=== PATIENT | female | born 1950 | race Caucasian/White ===

== ENCOUNTER → 2018-10-01 | Outpatient (CLI) | payer MEDICARE, OTHER ==
--- NOTE | 2018-10-02 10:10 | MAM ---
EXAM DESCRIPTION: 3D Screening BILATERAL : Digital Mammography. CLINICAL HISTORY: 68 years Female ANNUAL SCREENING . No complaints. No personal history of breast cancer. Remote family history of breast cancer. Childbirth. Postmenopausal 20+ years. Currently HRT. Lifetime risk of developing breast cancer (Tyrer-Cuzick model)(%): 4.6. COMPARISON: Bilateral screening digital breast tomosynthesis 09/25/2017. . TECHNIQUE: Bilateral CC and MLO projection full-field images, digital tomosynthesis mammographic technique. Bilateral digital 2-D full-field MLO images. CAD not available for tomosynthesis or 2-D images. FINDINGS: The breast parenchymal density pattern is: Scattered areas of fibroglandular density. Bilateral solitary microcalcifications. Right axillary lymph node.. Focal asymmetry again noted in the upper outer quadrant of the middle third of the right breast but change in pattern with more nodularity compared to the prior study. This is centered at approximately 6.6 cm from the nipple at the 9:30 position. No microcalcifications. No new focal, stellate mass or density, focal asymmetry , and no suspicious microcalcifications left breast. IMPRESSION: BI-RADS CATEGORY: 0 - INCOMPLETE- Need additional imaging evaluation. FOLLOW-UP: Recall for additional imaging: Full-field LM tomosynthesis right breast. Spot compression CC and LM projections of the region of interest right breast with 2-D and charlene synthesis. Targeted right breast ultrasound following diagnostic mammographic phase. Written communication concerning the IMPRESSION and Follow-up, will be mailed to the patient and referring health care provider. Electronically signed by: Kings Taveras MD 10/02/2018 10:08 AM CDT
== END ==
LOC: MAMMO 08:55
PROVIDERS: ATTEND Obstetrics & Gynecology
DX: Z12.31 Encounter for screening mammogram for malignant neoplasm of breast (principal)

== ENCOUNTER → 2018-10-14 | Outpatient (CLI) | payer OTHER ==
--- NOTE | 2018-10-15 10:37 | US ---
EXAM DESCRIPTION: Breast,Right (accession [id number]), ultrasound. Diagnostic Mammo,Right (accession [id number]): Digital mammography. CLINICAL HISTORY: 68 yearsFemaleABNORMAL SCREENING Focal asymmetry or nodule in the upper outer quadrant middle third right breast. COMPARISON: Bilateral screening digital breast tomosynthesis 10/02/2018. TECHNIQUE: Right breast LM projection full-field images, digital mammographic tomosynthesis technique. Right breast 2-D digital full-field images. LM projection. Digital spot compression 2-D technique region of interest, LM and CC projections. CAD not available . Transcutaneous scanning of the right breast utilizing floyd-scale and Doppler modes. Scanning performed by the engine repair supervisor and Dr. Taveras. FINDINGS: The breast parenchymal density pattern is: Scattered areas of fibroglandular density. No skin thickening or nipple retraction nodular densities surrounded by fibroglandular tissues. No microcalcifications. Ultrasound: Scanning of the lateral right breast middle third. Heterogeneous fibroglandular and fatty echotextures. At the 9:00 position 6 cm from the nipple is a anechoic structure with circumscribed margins measuring 4.2 x 6.5 mm and consistent with a cyst. Wider than tall orientation, posterior acoustic enhancement, and nonvascular. In the adjacent tissues is a anechoic structure measuring 5.1 mm with wider than tall orientation, posterior acoustic enhancement, circumscribed margins, and no vascularity. Consistent with a cyst. A third cyst is identified adjacent soft tissues measuring 4.1 x 3.1 mm. Hypoechoic object with circumscribed margins measuring 4.2 x 3.5 mm and echogenic hilum. Wider than tall orientation and posterior acoustic enhancement. Nonvascular. Most likely a lymph node. IMPRESSION: Benign exam. BIRAD CATEGORY: 2 BENIGN FINDINGS. RECOMMENDATIONS: FOLLOW UP: Routine digital bilateral mammographic screening, one year interval from September 2018. Written communication explaining the IMPRESSION and follow-up, will be mailed to the patient and referring health care provider. The FINDINGS and the FOLLOW-UP plan were reviewed in person with the patient after the examination. According to the [employer], yearly mammograms are recommended starting at age 40 and continuing as long as a woman is in good health. Any breast change noted on a breast self-exam should be reported promptly to the patient's healthcare provider. Breast MRI is recommended for women with an approximately 20-25% or greater lifetime risk of breast cancer, including women with a strong family history of breast or ovarian cancer and women who have been treated for Hodgkin's disease. A negative mammographic report should not delay tissue diagnosis in patients with significant clinical history or physical findings. Extremely dense breast tissue limits the sensitivity of digital mammography. Electronically signed by: Kings Taveras MD 10/15/2018 10:35 AM CDT
== END ==
LOC: MAMMO 09:05
PROVIDERS: ATTEND Obstetrics & Gynecology
DX: R92.8 Other abnormal and inconclusive findings on diagnostic imaging of breast (principal)

== ENCOUNTER → 2020-01-07 | Outpatient (CLI) | payer OTHER ==
--- NOTE | 2020-01-07 16:28 | MAM ---
EXAM DESCRIPTION: 3D Screening BILATERAL : Digital Mammography. CLINICAL HISTORY: 69 years Female YEARLY SCREENING . No complaints. Remote family history of breast cancer. Menarche age 12. Childbirth age 17. Menopause age 21. Currently on HRT. Lifetime risk of developing breast cancer (Tyrer-Cuzick model)(%): 4.4. COMPARISON: Bilateral screening digital breast tomosynthesis September 2018 and September 2017. Diagnostic breast tomosynthesis and directed right breast ultrasound September 2018. TECHNIQUE: Bilateral CC and MLO projection full-field images, digital tomosynthesis mammographic technique. Bilateral digital 2-D full-field MLO images. CAD available for 2-D images. FINDINGS: The breast parenchymal density pattern is: Scattered areas of fibroglandular density. No skin thickening or nipple retraction. Solitary microcalcifications. Bilateral nodular densities showing no significant change and consistent with history of cysts. Axillary nodes. No new focal, stellate mass or density, focal asymmetry , and no suspicious microcalcifications bilaterally. Stable mammograms compared to prior study. IMPRESSION: Benign exam. BIRAD CATEGORY: 2 BENIGN FINDINGS. RECOMMENDATIONS: FOLLOW UP: Routine digital bilateral mammographic screening, one year interval from December 2019. Written communication explaining the IMPRESSION and follow-up, will be mailed to the patient and referring health care provider. According to the [employer], yearly mammograms are recommended starting at age 40 and continuing as long as a woman is in good health. Any breast change noted on a breast self-exam should be reported promptly to the patient's healthcare provider. Breast MRI is recommended for women with an approximately 20-25% or greater lifetime risk of breast cancer, including women with a strong family history of breast or ovarian cancer and women who have been treated for Hodgkin's disease. A negative mammographic report should not delay tissue diagnosis in patients with significant clinical history or physical findings. Extremely dense breast tissue limits the sensitivity of digital mammography. Electronically signed by: Kings Taveras MD 01/07/2020 4:26 PM PARARESCUE MANAGER
== END ==
LOC: MAMMO 01-06 08:00
PROVIDERS: ATTEND Obstetrics & Gynecology
DX: Z12.31 Encounter for screening mammogram for malignant neoplasm of breast (principal)

== ENCOUNTER 2020-01-19 05:07 | Day surgery (SDC) | payer OTHER ==
[2020-01-19] MEDS ORDERED: LACTATED RINGERS 1,000 ML ONE (06:40)
--- NOTE | 2020-01-19 11:12 | OP ---
DATE OF PROCEDURE: 01/19/20 PREOPERATIVE DIAGNOSIS: 1. History of colonic polyps. 2. Family history of colon cancer in her brother. 3. Last colonoscopy was 2014. POSTOPERATIVE DIAGNOSIS: 1. Diverticulosis. 2. Internal hemorrhoids. 3. Ascending colon polyp. PROCEDURE: 1. Colonoscopy plus polypectomy. SURGEON: Raj Turner MD. COMPLICATIONS: None apparent. BLOOD LOSS: None. MEDICATIONS: Monitored anesthesia care. DESCRIPTION OF PROCEDURE: Informed consent was obtained prior to sedation. The preprocedure cardiopulmonary assessment was satisfactory. The patient was placed in the left lateral decubitus position and was sedated. A digital rectal exam was unremarkable. The tip of the Olympus colonoscope was inserted in the rectum and guided over to the cecum. The cecum was identified by locating the ileocecal valve and appendiceal orifice. The [place] Bowel Prep Score was 9. The prep was excellent. Retroflexed view of the right colon was obtained. The mucosa of the cecum, ascending colon, hepatic flexure, transverse colon, splenic flexure, descending colon and sigmoid colon was closely examined. Direct and retroflexed views of the rectum were obtained. The patient had one single polyp seen in the ascending colon. It was sessile and 3 mm in size. It was removed with a cold snare and recovered. The patient has some sigmoid diverticulosis. Retroflexed view in the rectum reveals small internal hemorrhoids. The procedure was then terminated. RECOMMENDATIONS: 1. Followup polyp pathology. 2. Followup colonoscopy in 5 years due to her family history and personal history of polyps. #[id number] cc: Dr. Kwaku SWEENEY
[2020-01-19 11:24] VITALS: O2SAT 98
[2020-01-19 11:25] VITALS: BP 151/109; TEMP 96.9
== END 2020-01-19 11:15 | disposition home or self-care (01) ==
LOC: AMB 05:07
PROVIDERS: ATTEND Internal Medicine Gastroenterology
DX: Z12.11 Encounter for screening for malignant neoplasm of colon (principal); D12.2 Benign neoplasm of ascending colon; K57.30 Diverticulosis of large intestine without perforation or abscess without bleeding; K64.8 Other hemorrhoids; I10 Essential (primary) hypertension; M10.9 Gout, unspecified; E66.3 Overweight; Z86.010 Personal history of colon polyps; Z80.0 Family history of malignant neoplasm of digestive organs; Z68.26 Body mass index [BMI] 26.0-26.9, adult; Z79.899 Other long term (current) drug therapy
CPT/HCPCS: 00812; 45385; 88305; J7120